=== PATIENT | female | born 1980 | race American Indian/Alaskan Native ===

== ENCOUNTER 2016-09-19 05:46 | Day surgery (SDC) | payer MEDICAID ==
[2016-09-19] MEDS ORDERED: NACL 0.9% 1000 ML 1,000 ML IV SCH (07:00)
--- NOTE | 2016-09-19 07:12 | Anesthesia Day of Surgery ---
Anesthesia Day of Surgery - Day of Surgery Patient Examined: Yes Patient H&P Reviewed: Yes Patient is NPO: Yes Beta Blockers: No Cardiac Clearance: No Pulmonary Clearance: No
--- NOTE | 2016-09-19 07:14 | Anesthesia Consultation ---
Anesthesia Consult and Med Hx Date of service: 09/19/16 - Airway Anesthetic Teeth Evaluation: Good ROM Head & Neck: Adequate Mental/Hyoid Distance: Adequate Mallampati Class: Class II Intubation Access Assessment: Probably Good - Pulmonary Exam CTA: Yes (clear no wheeze) - Cardiac Exam Cardiac Exam: RRR - Pre-Operative Health Status ASA Pre-Surgery Classification: ASA3 Proposed Anesthetic Plan: MAC - Pulmonary Hx Asthma: Yes (never hospitalized/ only prn use of inhaler none x >1 yr) Hx Sleep Apnea: Yes - Other Systems Hx Obesity: Yes (BMI 53) - Additional Comments Anesthesia Medical History Comments: recent hx tonsilitis/finished Ab yesterday
[2016-09-19] MEDS ORDERED: WATER FOR IRRIG STERILE IR ONE (07:35)
[2016-09-19] MEDS ORDERED: DIPRIVAN 10 MG/ML IV ONE ×2 (07:36)
--- NOTE | 2016-09-19 07:36 | Discharge Summary ---
Providers - Providers Date of discharge: 09/19/16 Attending physician: TOÁMS BEAN Hospitalization Condition: Good Disposition: DISCHARGED TO HOME OR SELFCARE Core Measure Documentation - Palliative Care Palliative Care/ Comfort Measures: Not Applicable - Core Measures Any of the following diagnoses?: none Exam - Physical Exam Narrative exam: unchanged from pre-op h&p - Constitutional Vitals: Temp Pulse Resp BP Pulse Ox 98.2 F 65 16 135/67 99 09/19/16 07:26 09/19/16 07:26 09/19/16 07:26 09/19/16 07:26 09/19/16 07:26 Plan Activity: no restrictions Diet: other (clear liquids)
--- NOTE | 2016-09-19 07:54 | Operative Report ---
Operative Report Operative Report: OPERATIVE REPORT - EGD DATE 09/19/16 SURGERY: Upper endoscopy. SURGEON: Karan Melendrez M.D. CLEARANCE CUTTER: n/a PRE OP DX: dyspepsia POST OP DX: hiatal hernia TYPE OF ANESTHESIA: MAC. ESTIMATED BLOOD LOSS: None. COMPLICATIONS: None. SPECIMENS REMOVED: None. FINDINGS: 1. Small hiatal hernia. 2. Otherwise, normal esophagus, stomach and first portion of duodenum. INDICATIONS:INDICATION FOR PROCEDURE: Patient is a 36-year-old female with a long history of morbid obesity. She is planned to have a weight loss procedure and is here for preoperative planning EGD. PROCEDURE DETAILS: After consent was reviewed, patient was taken back to the operating room where patient was placed in the left lateral decubitus position and a bite block was placed in the mouth. After a time-out was called, MAC anesthesia was initiated. I then passed the endoscope into her oropharynx, into her esophagus, visualized the entire esophagus, which was all within normal limits. I then visualized the stomach and the first portion of the duodenum and there were no abnormalities I could clearly visualize. I then retroflexed the scope in the stomach and visualized the hiatus and I could see a small hiatal hernia. I then desufflated the stomach and removed the endoscope. Patient tolerated procedure well and was transferred to recovery room in good and stable condition.
[2016-09-19 08:30] VITALS: BP 138/69
== END 2016-09-19 05:47 | disposition home or self-care (01) ==
LOC: GIO 05:46
PROVIDERS: ATTEND Surgery
DX: K44.9 Diaphragmatic hernia without obstruction or gangrene (principal); K21.9 Gastro-esophageal reflux disease without esophagitis; J45.909 Unspecified asthma, uncomplicated; E66.01 Morbid (severe) obesity due to excess calories; Z68.43 Body mass index [BMI] 50.0-59.9, adult
CPT/HCPCS: 43235; 81025; J2704; J7030

== ENCOUNTER 2016-09-20 07:41 | Inpatient (IN) | payer MEDICAID ==
[~2016-09-20 07:41] MED LIST: ANCEF/STERILE WATER 2 GM/20 ML 2 GM/20 ML SYRINGE IV NR; APRESOLINE IV PRN; FLAGYL 500 MG/100 ML 500 MG/100 ML BAG IV NR; LACTATED RINGERS 1,000 ML IV SCH; LEVAQUIN 500MG/100ML 500 MG/100 ML BAG IV NR; LOVENOX SUB-Q NR; MORPHINE IV PRN; NORCO PO PRN; REGLAN IV PRN; TRANSDERM-SCOP TD SCH
[2016-09-20] MEDS ORDERED: DECADRON ONE ×2 (08:01→11:27)
[2016-09-20] MEDS ORDERED: ZOFRAN ONE ×3 (08:01→11:28)
[2016-09-20] MEDS ORDERED: DILAUDID ONE (08:01)
[2016-09-20] MEDS ORDERED: QUELICIN ONE ×2 (08:01→11:27)
[2016-09-20] MEDS ORDERED: DIPRIVAN 10 MG/ML IV ONE ×2 (08:01→09:54)
[2016-09-20] MEDS ORDERED: ZEMURON IV ONE ×2 (08:01→11:27)
[2016-09-20] MEDS ORDERED: XYLOCAINE MPF 2% ONE ×2 (08:01→11:27)
--- NOTE | 2016-09-20 09:17 | Admit Criteria Form ---
Admission Criteria Documentation: AMBULATORY SURGERY EXCEPTION CRITERIA Ambulatory Surgery Exception Criteria ( Place 'X' for any and all applicable criteria): Surgery or procedure performed on ambulatory basis may require inpatient stay for[A] ANY ONE of the following(1)(2)(3)(4)(5)(6)(7)(8)(9): [X I. A preoperative situation, condition, or finding that warrants inpatient stay as indicated by ANY ONE of the following: [X] a) Inpatient care needed because of severity of a disease or condition rather than the surgery (eg, severe cardiac or respiratory disease, severe infection) (15) (16 ) (17) (18) [] b) Emergent procedure (eg, angioplasty for acute ischemia)(19) [] c) Complex surgical approach or situation as indicated by ANY ONE of the following(3): [] i) Open approach needed instead of usual endoscopic, transcatheter, or other less invasive procedure [] ii) Difficult approach because of previous operation [] iii) Airway monitoring required after open neck procedures(20)(21) [] iv) Large mass requiring unusually extensive dissection [] v) Additional complicating feature requiring inpatient care (eg, drain management)(22(23): [] d) Major surgery in a pt with high anesthetic risk as indicated by ANY ONE of the following (2)(3)(5)(7)(8): [] i) ASA risk class III or higher (severe systemic disease impairing function) [D] [] ii) Advanced age (eg, older than 85 years)(14)(24) [] iii) Symptomatic heart failure(25) [] iv) Symptomatic asthma or COPD(8)(21) [] v) Morbid obesity with hemodynamic or respiratory problems(20)( 21)(26)(27) [] vi) Obstructive sleep apnea(20)(21) [] vii) Former premature infants who are younger than 60 weeks [] viii) High risk for severe postoperative abnormalities (eg, severe postoperative hypocalcemia after parathyroidectomy for severe hyperparathyroidism)(27)( 28) [] ix) Unstable angina(25) [] e) Drug-related risk requiring inpatient stay as indicated by ANY ONE of the following(5)(10)(14)(32)(33) [] i) Procedure requires discontinuing drugs or other therapy (eg , antiarrhythmic medication, antiseizure medication), which necessitates inpatient observation or treatment.(18)(31) [] ii) Major surgery and high risk drug use as indicated by ANY ONE of the following: [] 1) Active abuse of cocaine or similar drug [] 2) Monoamine oxidase inhibitor use [] 3) Other drug identified as posing risk [] f) Inadequate outpatient care situation as indicated by ANY ONE of the following(5)(10)(14)(32)(33) [] i) Patient lives remote from medical facility and procedure has urgent complication potential, and temporary nearby residence cannot be arranged [] ii) Patient will have postprocedure incapacitation and inadequate assistance at home, or alternative level of care cannot be arranged. [] iii) Patient will have long general anesthesia or procedure side effect resolution time, and competent person to stay with patient on first postoperative night at home or alternative level of care cannot be arranged. []iv) Other inadequate outpatient situation that cannot be handled by other means [] II. A perioperative event, condition, or finding that warrants inpatient stay as indicated by ANY ONE of the following (1)(2)(3): [] a) Inadequate physiologic recovery: cardiovascular, respiratory, or hemodynamic status not normal or near preoperative baseline(18) [] b) Hemodynamic instability [] c) Patient not alert with near normal or baseline mental status [] d) Temperature not normal or as expected and not appropriate for outpatient treatment of condition [] e) Ambulatory or appropriate activity level status not yet achieved post procedure [E](34)(35)(36) [] f) Operative site not appropriate (eg, unexpected or excessive drainage or bleeding) [] g) Postoperative effects not resolved or adequately managed (eg, significant pain or vomiting not appropriate for outpatient or next level of care)(10)(12) [] h) Complicating features requiring inpatient care as indicated by ANY ONE of the following(37): [] i) Severe complications of procedure (eg, bowel injury, airway compromise, vascular injury,severe hemorrhage) [] ii) Extensive (eg, dissection far beyond usual scope of procedure ) or prolonged (eg, 120 minutes beyond usual) surgery needed requiring inpatient postoperative care [] iii) Conversion to an open or complex procedure that requires inpatient care (eg, open vs laparoscopic cholecystectomy, abdominal vs vaginal hysterectomy)(38) [] iv) Comorbid condition or test result identified during or post procedure that requires inpatient care (7) [] v) Malignant hyperthermia(30) [] vi) Other complicating feature requiring inpatient care(22)(23) Inpatient stay may be needed until ALL of the following are present (1)(2)(3)(4) (5)(6)(10)(14)(33)(40): []a) Physiologic recovery: cardiovascular, respiratory, and hemodynamic status normal or near preoperative baseline []b) Hemodynamic stability []c) Patient alert, with near normal or baseline mental status []d) Temperature appropriate: patient afebrile or temperature appropriate for outpt treatment of condition []e) Activity level appropriate: ambulatory or appropriate activity level post procedure []f) Operative site appropriate as indicated by ALL of the following: []i) Site dry or with expected drainage []ii) Any blood noted is as expected for procedure. []g) Postoperative effects resolved or managed as indicated by ALL of the following: []i) Pain management appropriate for outpatient (or next level of) care(10) []ii) Minimal nausea and vomiting: if present, successfully treated with oral medication(12) []iii) Headache, dizziness, or drowsiness (if present) are mild. []h) Voiding status acceptable as indicated by ANY ONE of the following: []i) Voiding spontaneously []ii) No voiding but instructions given for follow-up in 6 to 8 hours []iii) Urinary catheter in place, and instructions given for follow-up []i) Complicating features requiring inpatient care manageable at a lower level of care(37) []j) Comorbid conditions manageable at a lower level of care(37) The original [employer] content created by [employer] has been revised. The portions of the content which have been revised are identified through the use of italic text or in bold, and [facility] [employer] has neither reviewed nor approved the modified material. All other unmodified content is copyright [employer]. Please see references footnoted in the original [employer] edition 2016 Admission Criteria Met: Yes
--- NOTE | 2016-09-20 09:42 | Anesthesia Consultation ---
Anesthesia Consult and Med Hx Date of service: 09/20/16 (Scheduled for Lap Gastric sleeve with Dr. Vernon Jenkins) - Airway Anesthetic Teeth Evaluation: Good, Bridges (upper and lower permanent bridges in place) ROM Head & Neck: Adequate Mental/Hyoid Distance: Adequate Mallampati Class: Class II Intubation Access Assessment: Probably Good - Pulmonary Exam CTA: Yes - Cardiac Exam Cardiac Exam: RRR - Pre-Operative Health Status ASA Pre-Surgery Classification: ASA3 Proposed Anesthetic Plan: General - Pre-Anesthesia Comment Pre-Anesthesia Comments: No previous surgeries. Tolerated anesthesia for EGD yesterday. - Pulmonary Hx Smoking: No Hx Asthma: Yes (never hospitalized/ only prn use of inhaler none x >1 yr) Hx Sleep Apnea: Yes (Recent diagnosis. No CPAP use.) - Cardiovascular System Hx Hypertension: No - Central Nervous System Hx Seizures: No - Gastrointestinal Hx Gastroesophageal Reflux Disease: No - Endocrine Hx Renal Disease: No Hx Non-Insulin Dependent Diabetes: No Hx Thyroid Disease: No - Hematic Hx Anemia: No - Other Systems Hx Cancer: No Hx Obesity: Yes (BMI= 53)
--- NOTE | 2016-09-20 09:56 | Anesthesia Day of Surgery ---
Anesthesia Day of Surgery - Day of Surgery Patient Examined: Yes Patient H&P Reviewed: Yes Patient is NPO: Yes Beta Blockers: No Cardiac Clearance: No Pulmonary Clearance: No
[2016-09-20] MEDS ORDERED: PEPCID IV NR (10:00)
[2016-09-20] MEDS ORDERED: ANCEF/STERILE WATER 2 GM/20 ML 2 GM/20 ML SYRINGE IV NR (10:00)
[2016-09-20] MEDS ORDERED: LOVENOX SUB-Q SCH (10:00)
[2016-09-20] MEDS ORDERED: TRANSDERM-SCOP TD SCH (10:00)
[2016-09-20] MEDS ORDERED: FLAGYL 500 MG/100 ML 500 MG/100 ML BAG IV NR (10:00)
[2016-09-20] MEDS ORDERED: VERSED IV NR ×2 (10:00)
[2016-09-20] MEDS ORDERED: LOVENOX SUB-Q NR (10:00)
[2016-09-20] MEDS ORDERED: VERSED ONE (10:50)
[2016-09-20] MEDS ORDERED: ROBINUL ONE ×2 (11:27→12:26)
[2016-09-20] MEDS ORDERED: NEOSTIGMINE ONE (11:27)
[2016-09-20] MEDS: LACTATED RINGERS 1,000 ML IV SCH ×2 (11:35→19:29)
[2016-09-20] MEDS ORDERED: MARCAINE-EPI 0.25%-1:200,000 INFILTRATI ONE (11:38)
[2016-09-20] MEDS ORDERED: XYLOCAINE 1% 20 mL ONE (11:38)
[2016-09-20] MEDS ORDERED: MARCAINE-EPI 0.5%-1:200,000 INFILTRATI ONE ×2 (11:40→12:59)
[2016-09-20] MEDS ORDERED: NEO SYNEPHRINE ONE (12:57)
[2016-09-20] MEDS ORDERED: NACL 0.9% 100 ML ONE (12:57)
[2016-09-20] MEDS ORDERED: NACL 0.9% IR ONE (12:59)
[2016-09-20] MEDS ORDERED: XYLOCAINE 1% 20 mL INFILTRATI ONE (13:00)
[2016-09-20] MEDS ORDERED: LACTATED RINGERS 1,000 ML ONE (13:36)
[2016-09-20] MEDS: DILAUDID IV PRN ×4 (14:15→14:40)
--- NOTE | 2016-09-20 14:29 | Operative Report ---
Operative Report Operative Report: DATE OF PROCEDURE: 09/20/2016 PREOPERATIVE DIAGNOSES: Morbid obesity, hiatal hernia POSTOPERATIVE DIAGNOSES: 1.same as pre-op SURGEON: Vernon Jenkins M.D. NYLON HOT WIRE CUTTER: MD Dr. Collette Goss PROCEDURE: 1. laparoscopic sleeve gastrectomy 2. laparoscopic hiatal hernia repair ANESTHESIA: General. ESTIMATED BLOOD LOSS: <5 mL. COMPLICATIONS: None. SPECIMEN: Partial gastrectomy. FINDINGS: 1. hiatal hernia INDICATION FOR PROCEDURE: Patient is a 36-year-old female with a long history of morbid obesity. She has tried multiple efforts at weight loss without skilled nursing success. She is here today for sleeve gastrectomy. PROCEDURE IN DETAIL: After consent was reviewed, patient was taken back to the operating room, where patient was placed supine on the bed with both arms out. The patient's legs were doubly strapped to the bed. Patient had a foot board in place. Patient had a body warmer placed by anesthesia. Patient was then prepped and draped in normal sterile surgical fashion. After a time-out was called, I made a stab incision in the umbilicus and placed a Veress needle through this incision and insufflated the abdomen to 18 mmHg pressure. I then used a 5-mm Optiview trocar to enter into the abdomen on the RUQ. I then placed a 45-degree scope through this port and inspected the abdomen. There was no injury on entry of the abdomen. I then placed two 5-mm ports in the left upper quadrant, one along the anterior axillary line and 1 midclavicular line. Another subxiphoid 5mm trocar was placed. I then placed a 15-mm port through the umbilicus. I then placed the liver retractor through the subxiphoid port and placed the patient in full reverse Trendelenburg. The right and left crura were skeletonized accentuating a small hiatal hernia. An anterior cruraplasty was perfromed with a figure-of-8 stitch using [id number] suture to reapproximate the crura. I then identified the pylorus and then counted off 6cm from the pylorus. I then used the Thunderbeat device to enter into the lesser sac. At that point and then I took down the short gastrics all the way up to the left sherri. Then I had anesthesia pass down a 36-Nigerian bougie along the lesser curvature of the stomach. I made sure everything else was out of the abdomen except the bougie. I then created my gastric sleeve using a 60-mm Doland stapler loads. A green load followed by yellow and then blue loads. The sleeve looked good without any twisting or torsion. I then had anesthesia to remove the bougie. Hemostasis was obtained along the staple line. I then used Tiseel along the entirety of the staple line and some on the liver. I then removed liver grasper and took it off the field. I then removed the stomach through the 15-mm port. I then closed that fascia with a #1 PDS in a [id number] fashion using a Mynor-Laxmi. I then desufflated the abdomen and then removed all port sites. I then closed the incisions with 4-0 Monocryl in subcuticular fashion. I then dressed the wounds with steristrips and gauze. Patient tolerated the procedure well and was transferred to recovery room in good and stable condition.
[2016-09-20 14:43] LABS: Basophils % (Auto) 0.3 % (0.0-1.8); Eosinophils % (Auto) 0.4 % (0.0-4.3); Hematocrit 42.9 % (30.3-42.9); Hemoglobin 13.9 gm/dl (10.1-14.3); Mean Corpuscular HGB Conc 32 % (30-34); Mean Corpuscular Hemoglobin 28 pg (28-32); Mean Corpuscular Volume 85 fl (79-97); Platelet Count 215 K/mm3 (140-440); Red Blood Count 5.05 M/mm3 (3.65-5.03); Red Cell Distribution Width 14.5 % (13.2-15.2); White Blood Count 12.7 K/mm3 (4.5-11.0)
[2016-09-20 15:03] LABS: Phosphorous 3.4 mg/dL (2.5-4.5)
[2016-09-20 15:04] LABS: Blood Urea Nitrogen 8 mg/dL (7-17); Carbon Dioxide 21 mmol/L (22-30)
[2016-09-20 15:05] LABS: Alanine Aminotransferase 21 units/L (7-56); Albumin 3.6 g/dL (3.9-5); Albumin/Globulin Ratio 1.1 %; Alkaline Phosphatase 72 units/L (35-129); Anion Gap 18 mmol/L; Bilirubin,Total 0.4 mg/dL (0.1-1.2); Calcium 8.7 mg/dL (8.4-10.2); Chloride 103.5 mmol/L (98-107); Glucose 125 mg/dL (65-100); Potassium 4.3 mmol/L (3.6-5.0); Sodium 138 mmol/L (137-145)
[2016-09-20] MEDS: SUBLIMAZE IV PRN ×2 (15:06→15:15)
[2016-09-20] MEDS: ZOFRAN IV PRN ×2 (15:32→21:38)
[2016-09-20] MEDS ORDERED: PHENERGAN PO PRN (15:38)
--- NOTE | 2016-09-20 15:38 | Post Anesthesia Evaluation ---
- Post Anesthesia Evaluation Patient Participated: No Stable Respiratory Function: Yes Nausea/Vomiting: No Temp > 96.8F: Yes Pain Manageable: Yes Adequeate Hydration: Yes Anesthesia Complications: No Block Receding Appropriately: Not Applicable Patient on Ventilator: No
[2016-09-20] MEDS ORDERED: DEMEROL IV PRN (15:50)
[2016-09-20] MEDS ORDERED: DEMEROL ONE (15:53)
[2016-09-20] MEDS: MYLICON PO PRN (21:47)
[2016-09-20] MEDS ORDERED: TORADOL IV PRN (23:31)
[2016-09-21] MEDS: MYLICON PO PRN ×2 (03:23→08:29)
[2016-09-21] MEDS: LACTATED RINGERS 1,000 ML IV SCH (07:08)
[2016-09-21] MEDS: LOVENOX SUB-Q SCH ×2 (08:39→10:06)
[2016-09-21] MEDS: ZOFRAN IV PRN (08:57)
[2016-09-21] MEDS ORDERED: MYLICON PO PRN (11:00)
[2016-09-21 13:14] VITALS: BP 141/76
--- NOTE | 2016-09-21 13:15 | Discharge Summary ---
Providers - Providers Date of Admission: 09/20/16 07:41 Date of discharge: 09/21/16 Attending physician: TERESA FARMER Hospitalization Reason for admission: post op observation Condition: Stable Procedures: lap sleeve gastrectomy Disposition: DISCHARGED TO HOME OR SELFCARE Core Measure Documentation - Palliative Care Palliative Care/ Comfort Measures: Not Applicable - Core Measures Any of the following diagnoses?: none Exam - Physical Exam Narrative exam: NAD, VSS Lungs CTA BL Heart RRR Abd soft, ND, appropriate wound TTP, wounds c/d/i with dressing in place Neuro AAOx3 - Constitutional Vitals: Temp Pulse Resp BP Pulse Ox 98.3 F 78 20 160/77 100 09/21/16 08:23 09/21/16 08:23 09/21/16 08:23 09/21/16 08:23 09/21/16 10:29 Plan Activity: advance as tolerated Diet: other (bariatric stage 1) Wound: keep clean and dry Special Instructions: no heavy lifting Follow up with: Mode DUFF [Other] - 7 Days
== END 2016-09-21 15:01 | disposition home or self-care (01) | DRG 327 ==
LOC: 3A 07:41 → 2B-SURG 14:33
PROVIDERS: ADMIT Specialist; ATTEND Specialist
PROC: 0DB64Z3 Excision of Stomach, Percutaneous Endoscopic Approach, Vertical (ICD-10-PCS; principal; 2016-09-20)
PROC: 0BQS4ZZ (ICD-10-PCS; 2016-09-20)
PROC: 0BQR4ZZ (ICD-10-PCS; 2016-09-20)
DX: K44.9 Diaphragmatic hernia without obstruction or gangrene (principal); Z68.43 Body mass index [BMI] 50.0-59.9, adult; E66.01 Morbid (severe) obesity due to excess calories; J45.909 Unspecified asthma, uncomplicated; G47.30 Sleep apnea, unspecified
CPT/HCPCS: 36415; 80053; 81025; 83735; 84100; 85025; 88307; C9250; J0330; J0360; J0690; J1100; J1170; J1650; J1885; J2175; J2250; J2270; J2370; J2405; J2704; J2710; J2765; J3010; J7120; Q0169